=== PATIENT | female | born 1965 | race Hispanic/Latino ===

== ENCOUNTER → 2018-08-15 | Outpatient (CLI) | payer BC | END | disposition home or self-care (01) | LOC: RAH 12:08 | PROVIDERS: ATTEND Family Medicine | DX: M16.0 Bilateral primary osteoarthritis of hip (principal) | CPT/HCPCS: 73521 ==

== ENCOUNTER 2019-12-25 17:04 | Emergency (ER) | payer BC ==
[2019-12-25] MEDS ORDERED: ACETAMINOPHEN 325 MG TAB ONE (17:39)
[2019-12-25] MEDS ORDERED: ONDANSETRON HCL 4 MG/2 ML VIAL ONE (17:39)
[2019-12-25 17:42] LABS: APPEARANCE,URINE Clear (CLEAR); BILIRUBIN,URINE Negative (NEGATIVE); COLOR,URINE Yellow (YELLOW); GLUCOSE, URINE (UA) Negative (NEGATIVE); KETONES,URINE Negative (NEGATIVE); LEUKOCYTE ESTERASE ,URINE Small (NEGATIVE); NITRATE,URINE Negative (NEGATIVE); OCCULT BLOOD,URINE Small (NEGATIVE); PROTEIN,URINE Negative (NEGATIVE)
[2019-12-25 17:52] LABS: BASOPHILS % (AUTO) 0.2 % (0.0-5.0); EOSINOPHILS % (AUTO) 3.2 % (0.0-8.0); HEMATOCRIT 43.2 % (36-48); MEAN CORPUSCULAR HGB CONC 32.2 g/dL (32.0-36.0); MEAN CORPUSCULAR VOLUME 87.1 fL (79-99); MONOCYTES % (AUTO) 6.8 % (3.0-13.0); NEUTROPHILS % (AUTO) 53.4 % (40.0-77.0); PLATELET COUNT (AUTO) 318 K/uL (130-400); RED BLOOD CELL COUNT(AUTO) 4.96 MIL/uL (4.00-5.50); RED CELL DISTRIBUTION WIDTH 13.5 % (11.0-15.5); WHITE BLOOD COUNT (AUTO) 8.4 K/uL (4.8-10.8)
[2019-12-25 18:13] LABS: CREATININE 0.9 mg/dL (0.5-1.5); POTASSIUM 3.4 mmol/L (3.5-5.1)
[2019-12-25 18:17] LABS: ALBUMIN 3.7 g/dL (3.5-5.0); BILIRUBIN,TOTAL 0.3 mg/dL (0.2-1.0); TOTAL PROTEIN, SERUM 7.9 g/dL (6.0-8.3)
[2019-12-25 18:26] LABS: BACTERIA,URINE Few /HPF (None Seen); MUCUS,URINE Few LPF (None Seen); SQUAMOUS EPITHELIAL CELL,UR Moderate /HPF (0-2)
== END 2019-12-25 20:11 | disposition home or self-care (01) ==
LOC: EDH 17:04
DX: K42.9 Umbilical hernia without obstruction or gangrene (principal); E11.9 Type 2 diabetes mellitus without complications; E78.00 Pure hypercholesterolemia, unspecified; I10 Essential (primary) hypertension; Z90.49 Acquired absence of other specified parts of digestive tract
CPT/HCPCS: 36415; 74176; 80053; 81001; 83690; 84484; 85025; 93005; 96361; 96374; 99285; J2405

== ENCOUNTER 2020-06-23 16:30 | Inpatient (IN) | payer BC ==
[~2020-06-23] VITALS: Ht 160 cm; Wt 83.9 kg
[2020-06-23 18:05] LABS: BASOPHILS % (AUTO) 0.3 % (0.0-5.0); EOSINOPHILS % (AUTO) 3.3 % (0.0-8.0); HEMATOCRIT 43.4 % (36-48); LYMPHOCYTES % (AUTO) 32.9 % (21.0-51.0); MEAN CORPUSCULAR HEMOGLOBIN 28.7 pg (27.0-33.0); MEAN CORPUSCULAR HGB CONC 33.4 g/dL (32.0-36.0); MEAN CORPUSCULAR VOLUME 85.8 fL (79-99); MONOCYTES % (AUTO) 7.9 % (3.0-13.0); NEUTROPHILS % (AUTO) 55.4 % (40.0-77.0); PLATELET COUNT (AUTO) 306 K/uL (130-400); RED BLOOD CELL COUNT(AUTO) 5.06 MIL/uL (4.00-5.50); RED CELL DISTRIBUTION WIDTH 13.7 % (11.0-15.5); WHITE BLOOD COUNT (AUTO) 9.2 K/uL (4.8-10.8)
[2020-06-23 18:12] LABS: CREATININE 0.8 mg/dL (0.5-1.5)
[2020-06-23 18:14] LABS: APPEARANCE,URINE CLOUDY (CLEAR); BILIRUBIN,URINE MODERATE (NEGATIVE); COLOR,URINE BROWN (YELLOW); GLUCOSE, URINE (UA) NEGATIVE (NEGATIVE); KETONES,URINE 15 mg/dL (NEGATIVE); LEUKOCYTE ESTERASE ,URINE TRACE (NEGATIVE); NITRATE,URINE NEGATIVE (NEGATIVE); OCCULT BLOOD,URINE LARGE (NEGATIVE); PROTEIN,URINE 100 mg/dL (NEGATIVE)
[2020-06-23 18:16] LABS: ALBUMIN 3.7 g/dL (3.5-5.0); BILIRUBIN,TOTAL 0.3 mg/dL (0.2-1.0); TOTAL PROTEIN, SERUM 7.9 g/dL (6.0-8.3)
[2020-06-23 18:23] LABS: RBC,URINE 26-50 /HPF (0-1)
[2020-06-23 18:24] LABS: BACTERIA,URINE Moderate /HPF (None Seen); MUCUS,URINE Rare LPF (None Seen); SQUAMOUS EPITHELIAL CELL,UR 0-2 /HPF (0-2)
[2020-06-23] MEDS ORDERED: ONDANSETRON 4MG INJ ONE ×2 (18:25→20:07)
[2020-06-23] MEDS ORDERED: MORPHINE 4 MG SYG ONE (18:25)
[2020-06-23] MEDS ORDERED: CEFTRIAXONE 1G VIAL ONE (20:00)
[2020-06-23] MEDS ORDERED: MORPHINE 2 MG SYG ONE (20:00)
[2020-06-23] MEDS ORDERED: LACTULOSE 20 GM/30 ML UDCUP PO PRN (20:30)
[2020-06-23] MEDS ORDERED: ZOLPIDEM TARTRATE 5 MG TAB PO PRN (20:30)
[2020-06-23] MEDS ORDERED: ACETAMINOPHEN 325 MG TAB PO PRN ×2 (20:30)
[2020-06-23] MEDS ORDERED: ONDANSETRON 4MG INJ IV PRN (20:30)
[2020-06-23] MEDS ORDERED: HYDROMORPHONE 0.5 MG SYG (0.5MG/0.5ML) IVP PRN (20:45)
[2020-06-23] MEDS ORDERED: KETOROLAC 15MG/ML VIAL (15MG/ML) IV PRN (20:45)
[2020-06-23] MEDS: TAMSULOSIN HCL 0.4 MG CAP.ER.24H PO SCH (21:00)
[2020-06-23] MEDS ORDERED: ZOLPIDEM TARTRATE 5 MG TAB ONE (21:27)
[2020-06-23] MEDS ORDERED: TAMSULOSIN HCL 0.4 MG CAP.ER.24H ONE (21:27)
[2020-06-23] MEDS ORDERED: HYDROMORPHONE 1 MG INJ ONE (21:59)
[2020-06-23] MEDS: 0.9%NACL 1000ML 1,000 ML IV SCH (22:25)
[2020-06-23 22:30] VITALS: BP 136/70
[2020-06-24 03:50] VITALS: BP 114/58
[2020-06-24] MEDS: 0.9%NACL 1000ML 1,000 ML IV SCH ×2 (05:55→16:43)
[2020-06-24] MEDS: CEFTRIAXONE 1G VIAL IV SCH (06:28)
[2020-06-24] MEDS: TAMSULOSIN HCL 0.4 MG CAP.ER.24H PO SCH (08:30)
[2020-06-24 08:57] VITALS: BP_SYST 145; BP_SYST 157; BP_DIAS 68; BP_DIAS 84
[2020-06-24] MEDS ORDERED: FAMOTIDINE 20MG TAB PO SCH (09:00)
[2020-06-24] MEDS ORDERED: MORPHINE 2 MG SYG IVP PRN (12:45)
[2020-06-24] MEDS ORDERED: FAMOTIDINE 20MG VIAL IV SCH (12:45)
[2020-06-24 13:06] VITALS: BP 179/97
[2020-06-24 15:00] VITALS: BP 169/81
[2020-06-24] MEDS: ENOXAPARIN SODIUM 30 MG/0.3 ML SQ SCH (16:47)
[2020-06-24 20:00] VITALS: BP 166/86
[2020-06-24 23:51] VITALS: BP 159/78
[2020-06-25] VITALS (27 sets, daily range): BP systolic 138–168; BP diastolic 54–93
[2020-06-25] MEDS: 0.9%NACL 1000ML 1,000 ML IV SCH ×4 (02:35→20:49)
[2020-06-25 06:03] LABS: HEMATOCRIT 41.3 % (36-48); MEAN CORPUSCULAR HEMOGLOBIN 27.4 pg (27.0-33.0); MEAN CORPUSCULAR HGB CONC 31.5 g/dL (32.0-36.0); MEAN CORPUSCULAR VOLUME 87.1 fL (79-99); RED BLOOD CELL COUNT(AUTO) 4.74 MIL/uL (4.00-5.50); RED CELL DISTRIBUTION WIDTH 13.5 % (11.0-15.5); WHITE BLOOD COUNT (AUTO) 9.2 K/uL (4.8-10.8)
[2020-06-25 06:14] LABS: INR 1.04 (0.85-1.15); PROTHROMBIN TIME 11.3 SEC (9.6-11.6)
[2020-06-25 06:30] LABS: CREATININE 0.8 mg/dL (0.5-1.5); POTASSIUM 3.7 mmol/L (3.5-5.1)
[2020-06-25] MEDS: CEFTRIAXONE 1G VIAL IV SCH (07:04)
[2020-06-25] MEDS ORDERED: LABETALOL 20MG VIAL IV PRN (08:30)
[2020-06-25] MEDS: ENOXAPARIN SODIUM 30 MG/0.3 ML SQ SCH (09:00)
[2020-06-25] MEDS: FAMOTIDINE 20MG TAB JT SCH (09:00)
[2020-06-25] MEDS: TAMSULOSIN HCL 0.4 MG CAP.ER.24H PO SCH (09:52)
[2020-06-25] MEDS: LOSARTAN 50 MG TABLET PO SCH (09:52)
[2020-06-25] MEDS ORDERED: IOHEXOL-350 50ML VIAL IV ONE (16:07)
[2020-06-25] MEDS ORDERED: MIDAZOLAM HCL 1 MG/ML 2ML VIAL ONE (16:08)
[2020-06-25] MEDS ORDERED: PROPOFOL 10 MG/ML 20ML VIAL IV ONE (16:09)
[2020-06-25] MEDS ORDERED: FENTANYL CITRATE PF 50 MCG/1 ML 2ML VIAL ONE (16:09)
[2020-06-25] MEDS ORDERED: ONDANSETRON 4MG INJ ONE (16:10)
[2020-06-25] MEDS ORDERED: MEPERIDINE-PF 25 MG/ML SYG ONE (17:53)
[2020-06-26] VITALS: BP 144/79
[2020-06-26 04:14] VITALS: BP 144/72
[2020-06-26] MEDS: CEFTRIAXONE 1G VIAL IV SCH (05:15)
[2020-06-26 06:20] LABS: HEMATOCRIT 40.8 % (36-48); MEAN CORPUSCULAR HEMOGLOBIN 27.6 pg (27.0-33.0); MEAN CORPUSCULAR HGB CONC 31.9 g/dL (32.0-36.0); MEAN CORPUSCULAR VOLUME 86.6 fL (79-99); RED BLOOD CELL COUNT(AUTO) 4.71 MIL/uL (4.00-5.50); RED CELL DISTRIBUTION WIDTH 13.3 % (11.0-15.5); WHITE BLOOD COUNT (AUTO) 7.7 K/uL (4.8-10.8)
[2020-06-26 06:29] LABS: CREATININE 0.7 mg/dL (0.5-1.5); POTASSIUM 3.9 mmol/L (3.5-5.1)
[2020-06-26 08:00] VITALS: BP 171/74
[2020-06-26] MEDS: LOSARTAN 50 MG TABLET PO SCH (08:23)
[2020-06-26] MEDS: TAMSULOSIN HCL 0.4 MG CAP.ER.24H PO SCH (08:23)
[2020-06-26] MEDS: FAMOTIDINE 20MG TAB JT SCH (08:23)
[2020-06-26] MEDS: ENOXAPARIN SODIUM 30 MG/0.3 ML SQ SCH (08:24)
[2020-06-26] MEDS ORDERED: LOSA50TA64 PO (09:48)
[2020-06-26] MEDS ORDERED: CEPH500B PO (09:49)
[2020-06-26 11:44] VITALS: BP 152/63
[2020-06-26] MEDS ORDERED: KETOROLAC 30MG VIAL (30MG/ML) IM SCH (12:00)
== END 2020-06-26 11:50 | disposition home or self-care (01) | DRG 661 ==
LOC: EDH 16:30 → OBSVTOIN 20:22 → EDHIP 20:22 → 3BH 21:40
PROVIDERS: ADMIT Internal Medicine Critical Care Medicine; ATTEND Internal Medicine Critical Care Medicine
PROC: 0T778DZ Dilation of Left Ureter with Intraluminal Device, Via Natural or Artificial Opening Endoscopic (ICD-10-PCS; principal; 2020-06-25 16:15)
PROC: BT1F1ZZ Fluoroscopy of Left Kidney, Ureter and Bladder using Low Osmolar Contrast (ICD-10-PCS; 2020-06-25 16:15)
DX: N13.6 Pyonephrosis (principal); E66.9 Obesity, unspecified; Z68.32 Body mass index [BMI] 32.0-32.9, adult; E11.9 Type 2 diabetes mellitus without complications; I10 Essential (primary) hypertension; E78.00 Pure hypercholesterolemia, unspecified; E78.5 Hyperlipidemia, unspecified; K04.7 Periapical abscess without sinus; R31.0 Gross hematuria; N81.10 Cystocele, unspecified; K43.9 Ventral hernia without obstruction or gangrene; Z20.822 Contact with and (suspected) exposure to COVID-19; Z90.49 Acquired absence of other specified parts of digestive tract; Z91.19 Patient's noncompliance with other medical treatment and regimen; Z87.442 Personal history of urinary calculi
CPT/HCPCS: 36415; 74176; 74420; 80048; 80053; 81001; 85025; 85027; 85610; 87088; 87426; A4344; A4354; C1758; C1769; C2617; G0378; J0696; J1170; J1650; J1885; J2175; J2250; J2270; J2405; J2704; J3010; J7030; Q9967; U0003

== ENCOUNTER → 2020-07-12 | Outpatient (CLI) | payer BC ==
[~2020-07-12] MED LIST: CEPH500B PO; LOSA50TA64 PO
== END | disposition home or self-care (01) ==
LOC: RAH 15:15
PROVIDERS: ATTEND Urology
DX: N20.0 Calculus of kidney (principal); Z90.49 Acquired absence of other specified parts of digestive tract
CPT/HCPCS: 74018; 76100

== ENCOUNTER → 2020-09-27 | Outpatient (CLI) | payer BC | END | disposition home or self-care (01) | LOC: RAH 14:48 | PROVIDERS: ATTEND Urology | DX: N20.0 Calculus of kidney (principal) | CPT/HCPCS: 74018; 76100 ==

== ENCOUNTER 2020-11-03 19:22 | Emergency (ER) | payer BC ==
[~2020-11-03] VITALS: Ht 152.4 cm; Wt 82.1 kg
[2020-11-03 19:24] VITALS: BP 187/79
[2020-11-03] MEDS ORDERED: IBUPROFEN 600 MG TABLET PO ONE (22:30)
[2020-11-03] MEDS ORDERED: ACETAMINOPHEN 500 MG TABLET PO ONE (22:30)
== END 2020-11-04 00:18 | disposition home or self-care (01) ==
LOC: EDH 19:22
DX: S63.502A Unspecified sprain of left wrist, initial encounter (principal); S93.402A Sprain of unspecified ligament of left ankle, initial encounter; E11.9 Type 2 diabetes mellitus without complications; E78.00 Pure hypercholesterolemia, unspecified; E78.5 Hyperlipidemia, unspecified; I10 Essential (primary) hypertension; Z79.1 Long term (current) use of non-steroidal anti-inflammatories (NSAID); Z79.899 Other long term (current) drug therapy; W18.39XA Other fall on same level, initial encounter; Y93.89 Activity, other specified; Y92.89 Other specified places as the place of occurrence of the external cause; Y99.2 Volunteer activity
CPT/HCPCS: 29260; 73110; 73610

== ENCOUNTER 2021-03-11 11:37 | Emergency (ER) | payer BC ==
[~2021-03-11] VITALS: Ht 160 cm; Wt 86.2 kg
[2021-03-11 11:39] VITALS: BP 130/103
[2021-03-11] MEDS ORDERED: ALBU8.5H8 IH (13:09)
[2021-03-11] MEDS ORDERED: IVER3TAB PO (13:09)
[2021-03-11] MEDS ORDERED: D-ME1POW16 PO (13:09)
[2021-03-11] MEDS: ACETAMINOPHEN WITH CODEINE 1 TAB TAB PO SCH (13:23)
== END 2021-03-11 13:41 | disposition home or self-care (01) ==
LOC: EDH 11:37
DX: U07.1 COVID-19 (principal); E11.9 Type 2 diabetes mellitus without complications; I10 Essential (primary) hypertension; E78.00 Pure hypercholesterolemia, unspecified; Z90.49 Acquired absence of other specified parts of digestive tract; Z79.899 Other long term (current) drug therapy; E66.9 Obesity, unspecified; Z68.33 Body mass index [BMI] 33.0-33.9, adult
CPT/HCPCS: 87635; 87804 ×2; 99283; C9803

== ENCOUNTER 2022-01-03 13:37 | Emergency (ER) | payer BC ==
[~2022-01-03] VITALS: Ht 152.4 cm; Wt 81.6 kg
[~2022-01-03 13:37] MED LIST changes: +ALBU8.5H8 IH; +D-ME1POW16 PO; +IVER3TAB PO
[2022-01-03 13:41] VITALS: BP 170/90
[2022-01-03] MEDS ORDERED: DICYCLOMINE HCL 10 MG/5 ML ML PO ONE (14:00)
[2022-01-03] MEDS ORDERED: MAG/ALUM/SIMETH 30 ML UDCUP PO ONE (14:00)
[2022-01-03] MEDS ORDERED: IBUPROFEN 600 MG TABLET PO ONE (14:00)
[2022-01-03] MEDS ORDERED: LIDOCAINE HCL 2% VISCOUS 15 ML UDCUP PO ONE (14:00)
[2022-01-03 14:57] LABS: INFLUENZA TYPE A NEGATIVE FOR TYPE A (NEG); INFLUENZA TYPE B NEGATIVE FOR TYPE B (NEG)
[2022-01-03] MEDS ORDERED: AMOX1TAB16 PO (15:00)
[2022-01-03] MEDS ORDERED: ACET-2247 PO (15:00)
[2022-01-03] MEDS ORDERED: CEFTRIAXONE 1G VIAL IM ONE (15:00)
[2022-01-03] MEDS ORDERED: LIDOCAINE HCL 1% 20 ML VIAL ONE (15:20)
== END 2022-01-03 15:35 | disposition home or self-care (01) ==
LOC: EDH 13:37
DX: J02.0 Streptococcal pharyngitis (principal); E11.9 Type 2 diabetes mellitus without complications; E78.00 Pure hypercholesterolemia, unspecified; I10 Essential (primary) hypertension; Z90.49 Acquired absence of other specified parts of digestive tract; Z79.899 Other long term (current) drug therapy
CPT/HCPCS: 87804; 87880; J0696

== ENCOUNTER 2022-03-12 20:28 | Emergency (ER) | payer BC ==
[~2022-03-12 20:28] MED LIST changes: +ACET-2247 PO; +AMOX1TAB16 PO
[2022-03-12 20:29] VITALS: BP 158/76
[2022-03-12 21:37] LABS: BASOPHILS % (AUTO) 0.3 % (0.0-5.0); EOSINOPHILS % (AUTO) 3.5 % (0.0-8.0); LYMPHOCYTES % (AUTO) 31.1 % (21.0-51.0); MEAN CORPUSCULAR HEMOGLOBIN 27.6 pg (27.0-33.0); MEAN CORPUSCULAR HGB CONC 32.6 g/dL (32.0-36.0); MEAN CORPUSCULAR VOLUME 84.5 fL (79-99); NEUTROPHILS % (AUTO) 55.8 % (40.0-77.0); PLATELET COUNT (AUTO) 284 K/uL (130-400); RED BLOOD CELL COUNT(AUTO) 4.97 MIL/uL (4.00-5.50); RED CELL DISTRIBUTION WIDTH 13.1 % (11.0-15.5); WHITE BLOOD COUNT (AUTO) 8.9 K/uL (4.8-10.8)
[2022-03-12 21:45] LABS: CREATININE 1.3 mg/dL (0.5-1.5)
[2022-03-12 21:50] LABS: ALBUMIN 3.4 g/dL (3.5-5.0); TOTAL PROTEIN, SERUM 7.5 g/dL (6.0-8.3)
[2022-03-12] MEDS ORDERED: 0.9%NACL 1000ML 1,000 ML IV ONE (22:00)
[2022-03-12] MEDS ORDERED: ONDANSETRON 4MG INJ IVP ONE (22:00)
[2022-03-12] MEDS ORDERED: MORPHINE 4 MG SYG IVP ONE (22:00)
[2022-03-12] MEDS ORDERED: IOHEXOL 350 MG/ML 100ML INFUS..BTL IV ONE (22:13)
[2022-03-12] MEDS ORDERED: ONDA4TAB10 PO (23:03)
[2022-03-12] MEDS ORDERED: ACET-2079 PO (23:03)
[2022-03-12] MEDS ORDERED: TAMS-1 PO (23:03)
== END 2022-03-12 23:19 | disposition home or self-care (01) ==
LOC: EDH 20:28
DX: N20.1 Calculus of ureter (principal); E11.9 Type 2 diabetes mellitus without complications; R11.0 Nausea; E78.00 Pure hypercholesterolemia, unspecified; I10 Essential (primary) hypertension; Z90.49 Acquired absence of other specified parts of digestive tract; E66.9 Obesity, unspecified; Z79.899 Other long term (current) drug therapy
CPT/HCPCS: 99284; 74177; 96374; 96361; 96375; 80053; 83690; 85025; 36415; J7030; J2405; J2270; Q9967

== ENCOUNTER 2022-08-15 11:17 | Emergency (ER) | payer BC ==
[~2022-08-15] VITALS: Ht 152.4 cm; Wt 81.6 kg
[~2022-08-15 11:17] MED LIST changes: +ACET-2079 PO; +ONDA4TAB10 PO; +TAMS-1 PO
[2022-08-15 12:01] LABS: BASOPHILS % (AUTO) 0.2 % (0.0-5.0); EOSINOPHILS % (AUTO) 2.9 % (0.0-8.0); HEMATOCRIT 45.4 % (36-48); LYMPHOCYTES % (AUTO) 32.2 % (21.0-51.0); MEAN CORPUSCULAR HEMOGLOBIN 27.7 pg (27.0-33.0); MEAN CORPUSCULAR HGB CONC 32.2 g/dL (32.0-36.0); MONOCYTES % (AUTO) 7.1 % (3.0-13.0); PLATELET COUNT (AUTO) 307 K/uL (130-400); RED BLOOD CELL COUNT(AUTO) 5.28 MIL/uL (4.00-5.50); RED CELL DISTRIBUTION WIDTH 13.2 % (11.0-15.5); WHITE BLOOD COUNT (AUTO) 8.3 K/uL (4.8-10.8)
[2022-08-15 12:21] LABS: ALBUMIN 3.6 g/dL (3.5-5.0); CREATININE 0.8 mg/dL (0.5-1.5); POTASSIUM 3.9 mmol/L (3.5-5.1); TOTAL PROTEIN, SERUM 7.8 g/dL (6.0-8.3)
[2022-08-15 16:25] VITALS: BP 163/58
[2022-08-15] MEDS ORDERED: IBUP-2070 PO (16:52)
[2022-08-15 16:56] LABS: APPEARANCE,URINE CLEAR (CLEAR); BILIRUBIN,URINE NEGATIVE (NEGATIVE); COLOR,URINE LIGHT-YELLOW (YELLOW); GLUCOSE, URINE (UA) NEGATIVE (NEGATIVE); KETONES,URINE NEGATIVE (NEGATIVE); LEUKOCYTE ESTERASE ,URINE NEGATIVE Leu/uL (NEGATIVE); NITRATE,URINE NEGATIVE (NEGATIVE); OCCULT BLOOD,URINE NEGATIVE (NEGATIVE); PH,URINE 5.5 (5.0-8.0); PROTEIN,URINE NEGATIVE (NEGATIVE); UROBILINOGEN,URINE 0.2 mg/dL (0.2-1.0)
[2022-08-15] MEDS ORDERED: KETOROLAC 30MG VIAL (30MG/ML) IM ONE (17:00)
[2022-08-15] MEDS ORDERED: KETOROLAC 30MG VIAL (30MG/ML) ONE (17:04)
== END 2022-08-15 17:14 | disposition home or self-care (01) ==
LOC: EDH 11:17
DX: K43.9 Ventral hernia without obstruction or gangrene (principal); E11.9 Type 2 diabetes mellitus without complications; E66.9 Obesity, unspecified; E78.00 Pure hypercholesterolemia, unspecified; I10 Essential (primary) hypertension; Z79.1 Long term (current) use of non-steroidal anti-inflammatories (NSAID); Z79.899 Other long term (current) drug therapy; Z90.49 Acquired absence of other specified parts of digestive tract
CPT/HCPCS: 99284; 74176; 80053; 83690; 85025; 81003; 36415; 96372; J1885

== ENCOUNTER 2024-02-06 20:50 | Emergency (ER) | payer BC ==
[~2024-02-06] VITALS: Ht 152.4 cm; Wt 82.1 kg
[~2024-02-06 20:50] MED LIST changes: +IBUP-2070 PO; +ONDA-243 PO; -ONDA4TAB10 PO
[2024-02-06 21:01] VITALS: TEMP 99.8
[2024-02-06 21:30] LABS: RAPID GROUP A STREP negative (NEGATIVE)
[2024-02-06 21:38] LABS: SARS-CoV-2, RNA, NAAT NEGATIVE SARS CoV-2 (NEGATIVE)
[2024-02-06 21:44] LABS: APPEARANCE,URINE CLEAR (CLEAR); BILIRUBIN,URINE NEGATIVE (NEGATIVE); COLOR,URINE LIGHT-YELLOW (YELLOW); GLUCOSE, URINE (UA) >=1000 mg/dL (NEGATIVE); KETONES,URINE NEGATIVE (NEGATIVE); LEUKOCYTE ESTERASE ,URINE 500 Leu/uL (NEGATIVE); NITRATE,URINE NEGATIVE (NEGATIVE); OCCULT BLOOD,URINE NEGATIVE (NEGATIVE); PH,URINE 6.5 (5.0-8.0); PROTEIN,URINE NEGATIVE (NEGATIVE); UROBILINOGEN,URINE 0.2 mg/dL (0.2-1.0)
[2024-02-06 21:57] VITALS: BP 170/91; PULSE 94; RESP 18; O2SAT 96
[2024-02-06 21:58] LABS: ADD UA MICROSCOPIC YES
[2024-02-06 22:02] LABS: BACTERIA,URINE RARE /HPF (None Seen); SQUAMOUS EPITHELIAL CELL,UR FEW /HPF (0-2)
[2024-02-06 22:05] LABS: INFLUENZA TYPE A Negative For Type A (NEGATIVE); INFLUENZA TYPE B Negative For Type B (NEGATIVE)
[2024-02-06] MEDS: cefTRIAXone 1G VIAL IM ONE (22:25)
[2024-02-06] MEDS: ketOROlac 30MG VIAL (30MG/ML) IM ONE (22:26)
[2024-02-06] MEDS ORDERED: MACR100 PO (22:38)
--- NOTE | 2024-02-06 22:41 | ERN ---
General Chief Complaint: Sore Throat Stated Complaint: SORE THROAT Time Seen by MD: 20:52 Time Seen by Midlevel: 20:52 Source: patient History of Present Illness Initial Comments Patient is a 58-year-old female presenting to the emergency department with two complaints. Her primary concern is that she is having pain to the back of her throat. Patient was concerned that she may have strep. Otherwise she was no fever, chills, nausea, vomiting, or any other symptoms at this time. Additionally, she states she has been having some dysuria for the last couple of days and believes she may have a urinary tract infection. Denies being on any antibiotics at this time. Allergies: Coded Allergies: No Known Drug Allergies (Verified Allergy, Unknown, 03/10/19) Home Meds Active Scripts Nitrofurantoin/Nitrofuran Mac (Macrobid) 100 Mg Cap, 1 CAP PO BID for 7 Days, #14 CAP 0 Refills Prov:TONY JIMÉNEZ 02/06/24 Ibuprofen (Ibuprofen) 600 Mg Tablet, 600 MG PO TID, #20 TAB Prov:ROBERTO OCHOA DO 08/15/22 Tamsulosin HCl (Flomax) 0.4 Mg Cap.er.24h, 0.4 MG PO DAILY, #10 CAPSULE. Prov:RODOLFO HERNANDEZ 03/12/22 Ondansetron (Ondansetron Odt) 4 Mg Tab.rapdis, 4 MG PO TID PRN for NAUSEA/VOMITING, #10 TAB Prov:RODOLFO HERNANDEZ 03/12/22 Acetaminophen with Codeine (Acetaminophen-Cod #3 Tablet) 1 Each Tablet, 1 TAB PO Q4H PRN for PAIN, #10 TAB Prov:RODOLFO HERNANDEZ 03/12/22 Acetaminophen (Tylenol) 325 Mg Tablet, 650 MG PO Q4HPRN, #50 TAB Prov:OLEKSANDR SINGLETARY 01/03/22 Amoxicillin/Potassium Clav (Amox Tr-K Clv 875-125 mg Tab) 1 Each Tablet, 1 EACH PO BID for 10 Days, #20 TAB Prov:OLEKSANDR SINGLETARY 01/03/22 Ivermectin (Ivermectin) 3 Mg Tablet, 12 MG PO DAILY for 5 Days, #20 TAB Prov:OLEKSANDR SINGLETARY 03/11/21 Albuterol Sulfate (Proair Hfa) 8.5 Gm Hfa.aer.ad, 2 PUFF IH QIDP, #1 INHALER Prov:OLEKSANDR SINGLETARY 03/11/21 D-Methorphan/PE/Acetaminophen (Theraflu Ms Severe Cold Pckt) 1 Each Powd.pack, 1 EACH PO QIDP, #20 PACK Prov:OLEKSANDR SINGLETARY 03/11/21 Cephalexin Monohydrate (Keflex) 500 Mg Cap, 500 MG PO BID for 7 Days, #14 CAP 0 Refills Prov:AUNGJIMMIE [employer]ARM [employer] ENGINE MECHANIC 06/26/20 Losartan Potassium (Losartan Potassium) 50 Mg Tablet, 50 MG PO DAILY for 30 Days, #30 TAB 0 Refills Prov:AUNGJIMMIEMINERVA FLETCHER 06/26/20 Past Medical History Past Medical History: Diabetes-Type II, Hypertension, Renal Disese Medical History Other: Obesity Past Surgical History: Cholecystectomy Family History Family History: Negative Social History Social History: Lives with family ROS Dictation CONSTITUTIONAL: Negative except for HPI HEAD/FACE: Negative except for HPI EENT: Negative except for HPI RESPIRATORY: Negative except for HPI GASTROINTESTINAL/ABDOMINAL: Negative except for HPI GENITOURINARY: Negative except for HPI MUSCULOSKELETAL: Negative except for HPI INTEGUMENTARY: Negative except for HPI NEUROLOGICAL/PSYCH: Negative except for HPI HEMATOLOGIC/LYMPHATIC: Negative except for HPI All Systems Negative, Except as noted above. 13 point review of systems assessed and all negative except for above. Physical Exam Physical Exam Dictation Vital Signs reviewed General Appearance: Alert, oriented x 3, no acute distress, well developed, nourished. Head and Face: non-traumatic. Eyes: PERRL, pink conjunctivas, eyelid no trauma, anterior chamber with arcus senilis. Ears: Pinnas intact and no signs of trauma or erythema ear canals clear and no discharge TM no erythema Nose: No discharge, no bleeding. Oropharynx: Mouth normal, tongue pink, Erythema to the posterior oropharynx, no tonsillar exudates are noted Neck: Supple, non-tender, no thyromegaly, no masses, no JVD, no bruits Breast:Deferred Chest:No tenderness, no crepitus, no paradoxical movement, no retractions Lungs:Clear, well-ventilated, symmetric, no rales, no wheezing, no rhonchi, no stridor, good breath sounds bilaterally Heart: Regular rate, regular rhythm, no murmur, no gallops Vascular: no peripheral edema, Abdomen: Soft, positive bowel sounds, nondistended, no guarding, nontender, no rebound, no masses no hepatomegaly, no splenomegaly, no Nielson's sign, no hernias. Rectal: Deferred Genital: Deferred Neurological: Normal speech, motor function intact, sensory function intact Musculoskeletal: Neck nontender, full range of motion, back nontender, full range of motion, Extremities: nontender, full range of motion Skin: Color pink, dry, no turgor, no rash, no lacerations, no abrasions, no contusions. Lymphatic: Deferred Results Laboratory and Microbiology Lab and Micro Result Laboratory Tests Test 02/06/24 21:09 02/06/24 21:29 Influenza Type A Antigen Negative For Type A Influenza Type B Antigen Negative For Type B SARS-CoV-2, RNA, NAAT NEGATIVE SARS CoV-2 Group A Streptococcus Rapid negative (NEGATIVE) Urine Color LIGHT-YELLOW (YELLOW) Urine Appearance CLEAR (CLEAR) Urine pH 6.5 (5.0-8.0) Urine Specific [place] 1.026 (1.001-1.031) Urine Protein NEGATIVE mg/dL (NEGATIVE) Urine Glucose (UA) >=1000 mg/dL (NEGATIVE) H Urine Ketones NEGATIVE mg/dL (NEGATIVE) Urine Occult Blood NEGATIVE (NEGATIVE) Urine Nitrate NEGATIVE (NEGATIVE) Urine Bilirubin NEGATIVE mg/dL (NEGATIVE) Urine Urobilinogen 0.2 mg/dL (0.2-1.0) Urine Leukocyte Esterase 500 Leeanne/uL (NEGATIVE) H Urine RBC 6-10 /HPF (0-1) H Urine WBC 11-25 /HPF (0-1) H Urine Squamous Epithelial Cells FEW /HPF (0-2) Urine Bacteria RARE /HPF (None Seen) Labs Reviewed?: Yes MDM MDM: Patient is a 58-year-old female presenting to the emergency department with two complaints. Her primary concern is that she is having pain to the back of her throat. Patient was concerned that she may have strep. Otherwise she was no fever, chills, nausea, vomiting, or any other symptoms at this time. Additionally, she states she has been having some dysuria for the last couple of days and believes she may have a urinary tract infection. Denies being on any antibiotics at this time. On physical examination patient is in no acute distress. ENT examination is remarkable for erythema to the posterior oropharynx however the remainder of her physical examination is unremarkable. Respiratory swabs are negative. Her urinalysis consistent with infection. Patient was given 1 g of Rocephin IM and 30 of ketorolac IM in the emergency department. She will be discharged home with a prescription for Macrobid. Differential diagnosis: Urinary tract infection, strep pharyngitis, upper respiratory infection, viral syndrome There are no social concerns with this patient. Prescription drug management Prescriptions will include: Macrobid Medical management and examination interpretation discussions were had by me with other qualified healthcare professionals as indicated for the patient's care. ED Course Orders Procedure Category Date Status Time Covid Rna Naat LAB 02/06/24 Complete 21:08 Influenza Type A & B, LAB 02/06/24 Complete Rapid 21:08 Rapid (Group A Strep) LAB 02/06/24 Complete 21:08 Urinalysis Profile LAB 02/06/24 Complete 21:25 Culture Urine IVÁN 02/06/24 In Process 21:58 Ceftriaxone 1g Vial PHA 02/06/24 Complete (Rocephine 1g Inj) 22:30 Ketorolac PHA 02/06/24 Complete Tromethamine 30mg/Ml 22:30 Current Medications Medications (Trade) Dose Ordered Sig/Stephanie Route PRN Reason Start Time Stop Time Status Last Admin Dose Admin Ceftriaxone Sodium (ROCEphine 1G INJ) 1 gm ONCE ONCE IM 02/06/24 22:30 02/06/24 22:31 DC 02/06/24 22:25 Ketorolac Tromethamine (toRADol) 30 mg ONCE ONCE IM 02/06/24 22:30 02/06/24 22:31 DC 02/06/24 22:26 Vital Signs Date Time Temp Pulse Resp B/P (MAP) Pulse Ox O2 Delivery O2 Flow Rate FiO2 02/06/24 21:57 94 18 170/91 96 Room Air* 0 21 02/06/24 21:37 91 18 185/100 95 Room Air* 0 21 02/06/24 21:01 99.9 90 20 203/104 96 Room Air DX & DISP Disposition: Discharge Departure Impression: Primary Impression: Viral pharyngitis Additional Impression: UTI (urinary tract infection) Condition: Stable Scripts Nitrofurantoin/Nitrofuran Mac (Macrobid) 100 Mg Cap 1 CAP PO BID for 7 Days, #14 CAP 0 Refills Prov: TONY JIMÉNEZ 02/06/24 Additional Instructions: You have tested negative for influenza a, influenza B, strep, and COVID-19. Your urinalysis is consistent with infection. You were given antibiotics in the emergency department and will be discharged home with a prescription for oral antibiotics. Follow up with your primary care doctor in 2-3 days for repeat evaluation. Return to the ER for any new or worsening symptoms. Referrals: KYLE BRAGA MD (PCP) Time of Disposition: 22:37 I have reviewed the case, and I agree with, Diagnosis and Plan I performed the substantive portion of the visit. I have reviewed and personally made and approve the management plan that is documented in the note by myself or the SUSANNAH. I acknowledge for responsibility for the patient's management plan. TONY JIMÉNEZ Feb 06, 2024 22:40
== END 2024-02-06 22:56 | disposition home or self-care (01) ==
LOC: EDH 20:50
DX: J02.8 Acute pharyngitis due to other specified organisms (principal); B97.89 Other viral agents as the cause of diseases classified elsewhere; N39.0 Urinary tract infection, site not specified; E11.9 Type 2 diabetes mellitus without complications; E66.9 Obesity, unspecified; I10 Essential (primary) hypertension; Z20.822 Contact with and (suspected) exposure to COVID-19; Z79.1 Long term (current) use of non-steroidal anti-inflammatories (NSAID); Z79.899 Other long term (current) drug therapy; Z90.49 Acquired absence of other specified parts of digestive tract
CPT/HCPCS: 99284; 87635; 87880; 87086; 87804 ×2; 81001; 96372 ×2; J0696; J1885

== ENCOUNTER 2024-09-29 15:35 | Emergency (ER) | payer BC ==
[~2024-09-29] VITALS: Ht 170.2 cm; Wt 74.8 kg
--- NOTE | 2024-09-29 16:44 | ERN ---
General Chief Complaint: Lower Extremity Pain/Injury Stated Complaint: LEG PAIN Time Seen by MD: 16:05 Source: family History of Present Illness Initial Comments Ms. Lopez is a 58-year-old female, presented to ED after suffering a fall 2 d ays ago. Patient history was obtained from a family member who was accompanying her, as patient does not speak Greek. Patient states that she fell down on an outstretched hand and injured her right knee 2 days ago. Patient states that she was able to walk after the fall, however the pain has gotten worse since then. Patient reports difficulty walking at the moment, has limp, and is sitting in a wheelchair. Patient also reports pain in her back, bilateral hips, radiating pain on the back of the thighs to the feet, and feeling of ants crawling on her feet. Patient rates the pain 10/10. Patient has a past medical history of hypertension diabetes. Allergies: Coded Allergies: No Known Drug Allergies (Verified Allergy, Unknown, 03/10/19) Home Meds No Active Prescriptions or Reported Meds Past Medical History Past Medical History: Diabetes-Type II, Hypertension, Renal Disese Medical History Other: ABDOMINAL HERNIA Past Surgical History: Cholecystectomy Family History Family History: Negative Social History Social History: Lives with family Female( History) History: Not Applicable ROS Dictation CONSTITUTIONAL: No chills, no fever, no weakness, no diaphoresis, no malaise. HEAD/FACE: No signs of trauma. EENT: No eye pain, no blurred vision, no tearing, no double vision, no ear pain, no ear discharge, no nose pain, no nasal congestion, no throat pain, no throat swelling, no mouth pain. RESPIRATORY: No cough, no SOB, no orthopnea, no PND, no wheezing. CARDIOVASCULAR: No chest pain, no edema, no palpitations, no syncope. GASTROINTESTINAL/ABDOMINAL: No abdominal pain, no constipation, no diarrhea, no nausea, no vomiting. GENITOURINARY: No abnormal discharge, no dysuria, no frequent urination, no hematuria. No complaints of pain in the genitals. MUSCULOSKELETAL: Back pain, no gout, Right knee joint pain, right knee joint swelling, no muscle pain, no muscle stiffness, no neck pain. INTEGUMENTARY: No change in color, no change in hair/nails, no dryness, no les ion, no lumps, no rash. NEUROLOGICAL/PSYCH: No anxiety, not depressed, no emotional problem, no hea dache, no numbness, no pre-existing deficit, no history of seizures, no tremors, no weakness. HEMATOLOGIC/LYMPHATIC: Not anemic, no history of blood clots, no apparent bleeding, no bruising, glands not swollen. All Systems Negative, Except as Noted. Physical Exam Physical Exam Dictation VITAL SIGNS: Reviewed. GENERAL APPEARANCE: Alert, oriented x3 HEAD AND FACE: Non-traumatic. EYES: PERRL, pink conjunctivas, eyelid no trauma, anterior chamber clear. EARS: Pinnas intact and no signs of trauma or erythema. Ear canals clear and no discharge. TMs no erythema. NOSE: No discharge, no bleeding. OROPHARYNX: Mouth normal, teeth no caries, tongue pink. Pharynx clear, no erythema. Tonsils no exudates, no abscesses noted. Mucous membrane moist. NECK: Supple, non-tender, no thyromegaly, no masses, no JVD, no bruits. BREAST: Deferred. CHEST: No tenderness, no crepitus, no paradoxical movement, no retractions. LUNGS: Clear, well-ventilated, symmetric, no rales, no wheezing, no rhonchi, no stridor, good breath sounds bilaterally. HEART: Regular rate, regular rhythm, no murmur, no gallops. VASCULAR: No peripheral edema. ABDOMEN: Soft, positive bowel sounds, nondistended, no guarding, nontender, no rebound, no masses no hepatomegaly, no splenomegaly, no Nielson's sign, no hernias. RECTAL: Deferred. GENITAL: Deferred. NEUROLOGICAL: Normal speech, gross motor function intact, gross sensory function intact, b/l lower limb reflexes 2+. MUSCULOSKELETAL: Right knee tender on lateral side, tenderness to palpation lower lumbar vertebrae, Straight leg raise test positive right leg, Neck nontender, full range of motion,full range of motion. EXTREMITIES: Healing wound on the right knee, mild rt knee swelling bilateral piriformis muscle tenderness on palpation consistent with sciatica bilaterally SKIN: Color pink, dry, no turgor, no rash, no lacerations, no abrasions, no contusions. LYMPHATICS: Deferred. Results Laboratory and Microbiology Labs Reviewed?: Yes EKG/XRAY/US/CT/MRI X-RAY Comment [facility] [address] [id number] IMAGING REPORT Signed PATIENT: ADAMA LOPEZ I MR#: [id number] : 1965 SEX: F AGE: 58 LOCATION: ED ORDER [id number] STATUS: REG ER REPORT#: [id number] SERVICE 162 REASON: B/L Hip to knee pain following a fall ORDERING PHYSICIAN: KRISTIAN KELLEY MD PROCEDURE: HIPS B 2V - HIP BILAT 2VW EXAM: CR bilateral Hips, 2 View. CLINICAL HISTORY: B/L Hip to knee pain following a fall COMPARISON: X-ray bilateral hips 08/15/2018 FINDINGS: BONES: No acute fracture or aggressive appearing osseous lesion. 2.1 x 0.4 cm chronic appearing calcifications soft tissues lateral to the greater trochanter of the proximal right femur, heterotopic bone formation JOINTS: No dislocation. The joint spaces are normal. SOFT TISSUES: The soft tissues are unremarkable. IMPRESSION: No acute osseous abnormality. The bony structures appear somewhat demineralized. If the patient is nonweightbearing acutely, recommend a MRI to rule out an occult fracture. /[place] DICTATED BY: GERMAINE CABALLERO MD DATE: 09/29/241843 ELECTRONICALLY SIGNED BY: GERMAINE CABALLERO MD DATE: 09/29/241843 [address] [id number] IMAGING REPORT Signed PATIENT: ADAMA LOPEZ I MR#: [id number] : 1965 SEX: F AGE: 58 LOCATION: ED ORDER [id number] STATUS: REG ER REPORT#: [id number] SERVICE 1636 REASON: Back pain following fall ORDERING PHYSICIAN: KRISTIAN KELLEY MD PROCEDURE: LUMB 2 3VW - LUMBAR SPINE 2-3VWS EXAM: CR Lumbar Spine, 3 View. CLINICAL HISTORY: Back pain following fall COMPARISON: None provided. CT lumbar spine 11/23/2014 FINDINGS: BONES: No acute fracture or aggressive appearing osseous lesion. ALIGNMENT: Alignment is within normal limits. No significant scoliosis. Straightening of the normal lumbar lordosis. Mild anterior endplate marginal spurring L3, L4 and L5. Mild to moderate facet arthrosis L5-S1. Scattered diffuse abdominal aorta calcific atherosclerosis. DISCS / DEGENERATIVE CHANGES: Moderate loss of the L3-L4 disc space. Mild loss of the L4-L5 disc space. SOFT TISSUES: The soft tissues are unremarkable. Right upper quadrant probable cholecystectomy surgical clips. IMPRESSION: 1. No acute osseous injury. The bony structures appear demineralized. If there is high clinical concern for an acute fracture a CT Scan versus MRI exam is recommended. 2. Degenerative changes including moderate disc space narrowing at L3-L4 and mild disc space narrowing at L4-L5. 3. Straightening of normal lumbar lordosis. /[place] DICTATED BY: GERMAINE CABALLERO MD DATE: 09/29/241845 ELECTRONICALLY SIGNED BY: GERMAINE CABALLERO MD DATE: 09/29/24 [facility] [address] [place] [address] IMAGING REPORT Signed PATIENT: ADAMA LOPEZ I MR#: [id number] : 1965 SEX: F AGE: 58 LOCATION: [facility] ORDER 25 STATUS: REG ER [facility] REPORT#: [id number] SERVICE 21 REASON: B/L Hip to knee pain following a fall ORDERING PHYSICIAN: KRISTIAN KELLEY MD PROCEDURE: KNEE 3V RT - KNEE 3VWS RT EXAM: CR bilateral Knees, 3 View. CLINICAL HISTORY: B/L Hip to knee pain following a fall COMPARISON: None provided. FINDINGS: BONES: No acute fracture or aggressive appearing osseous lesion. Modeerate anterior superior patella spur. JOINTS: The joint spaces show no significant degenerative disease. There is no joint effusion appreciated. SOFT TISSUES: The soft tissues are unremarkable. IMPRESSION: No acute osseous pathology evident. /[place] DICTATED BY: GERMAINE CABALLERO MD DATE: 09/29/241845 ELECTRONICALLY SIGNED BY: GERMAINE CABALLERO MD DATE: 09/29/241845 [facility] MDM: Differential diagnosis: Hip fracture, Lumbar disc herniation, Rt Knee Rationale: Tests considered and ordered secondary to shared decision making include: Previous outside records reviewed: Old ER visits. Risk of complication and/or morbidity or mortality of patient management: None Medications-Per medication reconciliation Need for hospitalization: Patient does not meet criteria for hospitalization. Need for emergency major/minor surgery: No There are no social concerns with this patient. Prescription drug management Prescriptions will include symptomatic care Patient's prior external medical records from other ER visits were reviewed by me as indicated. Prior testing and results from previous visits were reviewed. Prior tests were taken into account with medical decision making and resource utilization, independent historian/historians were used to obtain complete medical history. I independently interpreted the test that were performed, results were reviewed by me and considered findings on radiology if ordered. * Medical management and examination interpretation discussions were had by me with other qualified healthcare professionals as indicated for the patient's care. ED Course Orders Procedure Category Date Status Time Ketorolac PHA 09/29/24 Complete Tromethamine 15mg/Ml 16:30 Orphenadrine Citrate PHA 09/29/24 Complete (Norflex) 16:30 Hip Bilat 2vw RAD 09/29/24 Resulted 16:22 Knee 3vws Rt RAD 09/29/24 Resulted 16:22 Lumbar Spine 2-3vws RAD 09/29/24 Resulted 16:36 Current Medications Medications (Trade) Dose Ordered Sig/Stephanie Route PRN Reason Start Time Stop Time Status Last Admin Dose Admin Ketorolac Tromethamine (toRADol) 15 mg ONCE ONCE IM 09/29/24 16:30 09/29/24 16:31 DC 09/29/24 16:51 Orphenadrine Citrate (Norflex) 60 mg ONCE ONCE IM 09/29/24 16:30 09/29/24 16:31 DC 09/29/24 16:51 Vital Signs Date Time Temp Pulse Resp B/P (MAP) Pulse Ox O2 Delivery O2 Flow Rate FiO2 09/29/24 15:42 98.4 82 18 127/87 97 DX & DISP Disposition: Discharge Departure Impression: Primary Impression: Sciatica associated with disorder of lumbar spine Condition: Stable Scripts Naproxen (Naproxen) 500 Mg Tablet 1 TAB PO BID for pain for 7 Days, #14 TAB 0 Refills Prov: DENICE PEREZ MD 09/29/24 Methocarbamol (Robaxin) 750 Mg Tab 1 TAB PO BID for 7 Days, #14 TAB 0 Refills Prov: DENICE PEREZ MD 09/29/24 Additional Instructions: FOLLOW-UP WITH PRIMARY CARE PROVIDER IN 1 TO 2 DAYS. TAKE MEDICATIONS DIRECTED HERE IN THE EMERGENCY ROOM. OKAY TO CONTINUE HOME MEDICATIONS UNLESS OTHERWISE DISCUSSED DURING YOUR VISIT IN THE EMERGENCY ROOM TODAY. RETURN TO YOUR NEAREST EMERGENCY ROOM IF SYMPTOMS WORSEN OR IF THERE IS NO IMPROVEMENT. CALL 911 IF YOU NEED IMMEDIATE ASSISTANCE. TAKE TYLENOL LIQT-EHT-AIPEXHB N EEDED AND IF NO CONTRAINDICATIONS ARE PRESENT. INCREASE ORAL HYDRATION. A WOUND CULTURE OR URINE CULTURE WAS ORDERED HERE IN THE EMERGENCY ROOM DEPARTMENT PLEASE FOLLOW-UP WITH PRIMARY CARE PROVIDER AND ADVISE THEM TO GET REPORTS FROM OUR FACILITY. IF YOU HAD ANY MICHAEL WRAP/SPLINTS THAT WERE APPLIED HERE, PLEASE DO NOT REMOVE THEM UNTIL YOU SEE YOUR PRIMARY CARE OR SPECIALTY. Referrals: Referrals: KYLE BRAGA MD (PCP) GRETCHEN WILLS MD Time of Disposition: 18:12 KRISTIAN KELLEY MD Sep 29, 2024 16:44 DENICE PEREZ MD Sep 29, 2024 17:52
[2024-09-29] MEDS: ORPHENADRINE 60MG/2ML IM ONE (16:51)
--- NOTE | 2024-09-29 17:45 | HMCIMG ---
EXAM: CR bilateral Hips, 2 View. CLINICAL HISTORY: B/L Hip to knee pain following a fall COMPARISON: X-ray bilateral hips 08/15/2018 FINDINGS: BONES: No acute fracture or aggressive appearing osseous lesion. 2.1 x 0.4 cm chronic appearing calcifications soft tissues lateral to the greater trochanter of the proximal right femur, heterotopic bone formation JOINTS: No dislocation. The joint spaces are normal. SOFT TISSUES: The soft tissues are unremarkable. IMPRESSION: No acute osseous abnormality. The bony structures appear somewhat demineralized. If the patient is nonweightbearing acutely, recommend a MRI to rule out an occult fracture. /[place]
--- NOTE | 2024-09-29 17:47 | HMCIMG ---
EXAM: CR Lumbar Spine, 3 View. CLINICAL HISTORY: Back pain following fall COMPARISON: None provided. CT lumbar spine 11/23/2014 FINDINGS: BONES: No acute fracture or aggressive appearing osseous lesion. ALIGNMENT: Alignment is within normal limits. No significant scoliosis. Straightening of the normal lumbar lordosis. Mild anterior endplate marginal spurring L3, L4 and L5. Mild to moderate facet arthrosis L5-S1. Scattered diffuse abdominal aorta calcific atherosclerosis. DISCS / DEGENERATIVE CHANGES: Moderate loss of the L3-L4 disc space. Mild loss of the L4-L5 disc space. SOFT TISSUES: The soft tissues are unremarkable. Right upper quadrant probable cholecystectomy surgical clips. IMPRESSION: 1. No acute osseous injury. The bony structures appear demineralized. If there is high clinical concern for an acute fracture a CT Scan versus MRI exam is recommended. 2. Degenerative changes including moderate disc space narrowing at L3-L4 and mild disc space narrowing at L4-L5. 3. Straightening of normal lumbar lordosis. /[place]
--- NOTE | 2024-09-29 17:47 | HMCIMG ---
EXAM: CR bilateral Knees, 3 View. CLINICAL HISTORY: B/L Hip to knee pain following a fall COMPARISON: None provided. FINDINGS: BONES: No acute fracture or aggressive appearing osseous lesion. Modeerate anterior superior patella spur. JOINTS: The joint spaces show no significant degenerative disease. There is no joint effusion appreciated. SOFT TISSUES: The soft tissues are unremarkable. IMPRESSION: No acute osseous pathology evident. /[place]
[2024-09-29] MEDS ORDERED: METH-662 PO (18:14)
[2024-09-29] MEDS ORDERED: NAPR-1194 PO (18:14)
[2024-09-29 18:22] VITALS: BP 121/85; PULSE 80; RESP 18; TEMP 98.5; O2SAT 97
== END 2024-09-29 18:24 | disposition home or self-care (01) ==
LOC: EDH 15:35
DX: M54.30 Sciatica, unspecified side (principal); E11.9 Type 2 diabetes mellitus without complications; I10 Essential (primary) hypertension; Z90.49 Acquired absence of other specified parts of digestive tract
CPT/HCPCS: 99284; 73521; 73562; 72100; 96372 ×2; J1885; J2360